=== PATIENT | female | born 1955 | race Hispanic/Latino ===

== ENCOUNTER 2017-12-01 12:16 | Emergency (ER) | payer SELFPAY ==
--- NOTE | 2017-12-01 15:09 | ER ---
Nurse's Notes [facility] Name: Anni West Age: 62 yrs Sex: Female : 1955 Arrival Date: 12/01/2017 Time: 12:17 Bed 10 Private MD: Diagnosis: Fall on same level from slipping, tripping and stumbling;Pain in right shoulder;Pain in right knee Presentation: 12/01 13:36 Presenting complaint: Patient states: Patient reports she fell from a standing position ss yesterday at [facility]. C/o R arm pain, shoulder, R knee and back pain. Transition of care: patient was not received from another setting of care. Onset of symptoms was November 30, 2017. Risk Assessment: Do you want to hurt yourself or someone else? Patient reports no desire to harm self or others. Initial Sepsis Screen: Does the patient meet any 2 criteria? No. Patient's initial sepsis screen is negative. Does the patient have a suspected source of infection? No. Patient's initial sepsis screen is negative. Care prior to arrival: None. 13:36 Method Of Arrival: Ambulatory ss 13:36 Acuity: ARAM 4 ss Historical: - Allergies: 13:39 No Known Allergies; ss - Home Meds: 13:39 None [Active]; ss - PMHx: 13:39 None; ss - PSHx: 13:39 Hysterectomy; Tonsillectomy; ss - Immunization history:: Adult Immunizations unknown. - Social history:: Smoking status: Patient/guardian denies using tobacco. - Ebola Screening: : Patient denies exposure to infectious person Patient denies travel to an Ebola-affected area in the 21 days before illness onset. Screenin:36 Abuse screen: Denies threats or abuse. Denies injuries from another. Nutritional ss screening: No deficits noted. Tuberculosis screening: Never had TB. Fall Risk None identified. Assessment: 13:36 General: Appears in no apparent distress. comfortable, Behavior is calm, cooperative. ss Pain: Complains of pain in R shoulder, R knee and R side of back Pain currently is 9 out of 10 on a pain scale. Pain began yesterday after falling from a standing position Is continuous, Aggravated by increased activity, repositioning. Neuro: Level of Consciousness is awake, alert, obeys commands, Oriented to person, place, time, situation. Cardiovascular: Capillary refill < 3 seconds is brisk in bilateral fingers. Respiratory: Airway is patent Trachea midline Respiratory effort is even, unlabored, Respiratory pattern is regular, symmetrical, Denies cough, pain with respiration, pain with cough, pain with movement. GI: Abdomen is flat, non-distended, Patient currently denies diarrhea, nausea, vomiting. Derm: Skin is intact, is healthy with good turgor, Skin is dry, Skin is pink, warm \T\ dry. normal. Musculoskeletal: Circulation, motion, and sensation intact. Range of motion: limited in right shoulder, limited by pain Swelling absent. 15:41 Reassessment: discharge instruction given with the aide of language line. Awaiting shot ss time. Patient is content with care received. Vital Signs: 13:39 BP 130 / 72; Pulse 62; Resp 16; Temp 97.9(O); Pulse Ox 100% on R/A; Weight 66.22 kg; ss Height 5 ft. 2 in. (157.48 cm); Pain 9/10; 13:39 Body Mass Index 26.70 (66.22 kg, 157.48 cm) ss ED Course: 12:17 Patient arrived in ED. mr 13:35 Jeanine Tse, RN is Primary Nurse. ss 13:36 Patient has correct armband on for positive identification. Bed in low position. Call ss light in reach. 13:39 Triage completed. ss 13:39 Arm band placed on right wrist. ss 14:10 Marlene Gifford FNP-C is PHCP. snw 14:10 Ian Alvarez MD is Attending Physician. snw 14:43 Knee Right 3 View XRAY In Process Unspecified. EDMS 14:44 X-ray completed. Portable x-ray completed in exam room. Patient tolerated procedure jb2 well. 15:40 No provider procedures requiring assistance completed. Patient did not have IV access ss during this emergency room visit. Sling applied to right arm. Administered Medications: 15:40 Drug: TORadol 60 mg Route: IM; Site: right gluteus; ss 15:40 Not Given (patient is driving herself): UltRAM 50 mg PO once ss Outcome: 15:08 Discharge ordered by . snw 16:00 Discharged to home ambulatory. ss 16:00 Condition: good 16:00 Discharge instructions given to patient, Instructed on discharge instructions, follow up and referral plans. medication usage, Demonstrated understanding of instructions, follow-up care, medications, Prescriptions given X 2. 16:02 Patient left the ED. ss Signatures: Dispatcher [employer] EDMS Marlene Gifford, KELLY-C INTENSIVE CARE MEDICINE SPECIALIST-Mattie Garcia mr Rodriguez, Omar jb2 Jeanine Tse, RN RN ss
--- NOTE | 2017-12-01 15:09 | EDPHYS ---
Physician Documentation [facility] Name: Anni West Age: 62 yrs Sex: Female : 1955 Arrival Date: 12/01/2017 Time: 12:17 Bed 10 Private MD: ED Physician Ian Alvarez HPI: 12/01 15:36 This 62 yrs old Female presents to ER via Ambulatory with complaints of Back snw Pain, Arm Pain. 15:36 This 62 yrs old Female presents to ER via Ambulatory with complaints of Back snw Pain, Arm Pain. 15:36 Details of fall: The patient fell from an upright position, while standing. Onset: The snw symptoms/episode began/occurred suddenly, yesterday. Associated injuries: The patient sustained injury to the low back, pain with movement, right shoulder and right knee, contusion, painful injury. Severity of symptoms: At their worst the symptoms were moderate. The patient has not experienced similar symptoms in the past. The patient has not recently seen a physician. Historical: - Allergies: 13:39 No Known Allergies; ss - Home Meds: 13:39 None [Active]; ss - PMHx: 13:39 None; ss - PSHx: 13:39 Hysterectomy; Tonsillectomy; ss - Immunization history:: Adult Immunizations unknown. - Social history:: Smoking status: Patient/guardian denies using tobacco. - Ebola Screening: : Patient denies exposure to infectious person Patient denies travel to an Ebola-affected area in the 21 days before illness onset. ROS: 15:35 Constitutional: Negative for fever, chills, and weight loss, Eyes: Negative for injury, snw pain, redness, and discharge, ENT: Negative for injury, pain, and discharge, Neck: Negative for injury, pain, and swelling, Cardiovascular: Negative for chest pain, palpitations, and edema, Respiratory: Negative for shortness of breath, cough, wheezing, and pleuritic chest pain, Abdomen/GI: Negative for abdominal pain, nausea, vomiting, diarrhea, and constipation, Back: Positive for injury and pain to low back : Negative for injury, bleeding, discharge, and swelling, Skin: Negative for injury, rash, and discoloration, Neuro: Negative for headache, weakness, numbness, tingling, and seizure. 15:35 MS/extremity: Positive for injury or acute deformity, decreased range of motion, tenderness, of the right shoulder, right knee. Exam: 15:33 Constitutional: This is a well developed, well nourished patient who is awake, alert, snw and in no acute distress. Head/Face: Normocephalic, atraumatic. Eyes: Pupils equal round and reactive to light, extra-ocular motions intact. Lids and lashes normal. Conjunctiva and sclera are non-icteric and not injected. Cornea within normal limits. Periorbital areas with no swelling, redness, or edema. ENT: Nares patent. No nasal discharge, no septal abnormalities noted. Tympanic membranes are normal and external auditory canals are clear. Oropharynx with no redness, swelling, or masses, exudates, or evidence of obstruction, uvula midline. Mucous membranes moist. Neck: Trachea midline, no thyromegaly or masses palpated, and no cervical lymphadenopathy. Supple, full range of motion without nuchal rigidity, or vertebral point tenderness. No Meningismus. Chest/axilla: Normal chest wall appearance and motion. Nontender with no deformity. No lesions are appreciated. Cardiovascular: Regular rate and rhythm with a normal S1 and S2. No gallops, murmurs, or rubs. Normal PMI, no JVD. No pulse deficits. Respiratory: Lungs have equal breath sounds bilaterally, clear to auscultation and percussion. No rales, rhonchi or wheezes noted. No increased work of breathing, no retractions or nasal flaring. Abdomen/GI: Soft, non-tender, with normal bowel sounds. No distension or tympany. No guarding or rebound. No evidence of tenderness throughout. Back: No spinal tenderness. No costovertebral tenderness. Full range of motion. Skin: Warm, dry with normal turgor. Normal color with no rashes, no lesions, and no evidence of cellulitis. Neuro: Awake and alert, GCS 15, oriented to person, place, time, and situation. Cranial nerves II-XII grossly intact. Motor strength 5/5 in all extremities. Sensory grossly intact. Cerebellar exam normal. Normal gait. Psych: Awake, alert, with orientation to person, place and time. Behavior, mood, and affect are within normal limits. 15:33 Back: No spinal tenderness. No costovertebral tenderness. Full range of motion. 15:33 Musculoskeletal/extremity: Extremities: grossly normal except: noted in the right shoulder (painful arc), right knee: decreased ROM, tenderness, ROM: limited active range of motion due to pain, Circulation is intact in all extremities. Sensation intact. 15:33 Neuro: Exam negative for acute changes. Vital Signs: 13:39 BP 130 / 72; Pulse 62; Resp 16; Temp 97.9(O); Pulse Ox 100% on R/A; Weight 66.22 kg; ss Height 5 ft. 2 in. (157.48 cm); Pain 9/10; 13:39 Body Mass Index 26.70 (66.22 kg, 157.48 cm) ss MDM: 14:10 Patient medically screened. snw 15:35 Data reviewed: vital signs, nurses notes. Data interpreted: Pulse oximetry: on room air snw is 100 %. Interpretation: normal. Counseling: I had a detailed discussion with the patient and/or guardian regarding: the historical points, exam findings, and any diagnostic results supporting the discharge/admit diagnosis, radiology results, the need for outpatient follow up, to return to the emergency department if symptoms worsen or persist or if there are any questions or concerns that arise at home. Special discussion: Based on the history and exam findings, there is no indication for further emergent testing or inpatient evaluation. I discussed with the patient/guardian the need to see the orthopedic surgeon for further evaluation of the symptoms. I discussed with the patient/guardian the need to see the primary care provider for further evaluation of the symptoms. 12/01 14:34 Order name: Knee Right 3 View XRAY; Complete Time: 15:33 snw 12/01 14:34 Order name: Sling; Complete Time: 15:16 snw Administered Medications: 15:40 Drug: TORadol 60 mg Route: IM; Site: right gluteus; ss 15:40 Not Given (patient is driving herself): UltRAM 50 mg PO once ss Disposition: 18:33 Co-signature as Attending Physician, Ian Alvarez MD I agree with the assessment and kdr plan of care. Disposition: 12/01/17 15:08 Discharged to Home. Impression: Fall on same level from slipping, tripping and stumbling, Pain in right shoulder, Pain in right knee. - Condition is Stable. - Discharge Instructions: Joint Pain, Fall Prevention in the Home, Shoulder Pain, Knee Pain, Shoulder Range of Motion Exercises, Cryotherapy, Heat Therapy, [id number]. - Prescriptions for Diclofenac Sodium 75 mg Oral Tablet Sustained Release - take 1 tablet by ORAL route 2 times per day; 30 tablet. orphenadrine citrate 100 mg Oral Tablet Sustained Release - take 1 tablet by ORAL route 2 times per day As needed; 20 tablet. - Medication Reconciliation Form, Thank You Letter, Antibiotic Education, Prescription Opioid Use form. - Follow up: Private Physician; When: 2 - 3 days; Reason: Recheck today's complaints, Continuance of care, Re-evaluation by your physician. Follow up: Emergency Department; When: As needed; Reason: Worsening of condition. Signatures: Dispatcher [employer] EDMS Ian Alvarez MD MD [facility] Marlene Gifford, PRINTING ASSISTANT-C PRINTING ASSISTANT-Haleyw Jeanine Tse RN RN ss Corrections: (The following items were deleted from the chart) 16:02 15:08 12/01/2017 15:08 Discharged to Home. Impression: Fall on same level from ss slipping, tripping and stumbling; Pain in right shoulder; Pain in right knee. Condition is Stable. Forms are Medication Reconciliation Form, Thank You Letter, Antibiotic Education, Prescription Opioid Use. Follow up: Private Physician; When: 2 - 3 days; Reason: Recheck today's complaints, Continuance of care, Re-evaluation by your physician. Follow up: Emergency Department; When: As needed; Reason: Worsening of condition. snw
[2017-12-01] MEDS ORDERED: TRAMADOL HCL 50 MG TAB ONE (15:23)
[2017-12-01] MEDS ORDERED: KETOROLAC 30 MG/ML INJ ONE (15:24)
--- NOTE | 2017-12-01 15:25 | RAD REPORT ---
EXAM DESCRIPTION: RAD - Knee Right 3 View - 12/01/2017 2:43 pm CLINICAL HISTORY: Right knee pain status post fall FINDINGS: No fracture or dislocation is seen. If the patient continues have symptoms to suggest an occult fracture, ligamentous or meniscal injury then an MRI would be recommended.
== END 2017-12-01 16:02 | disposition home or self-care (01) ==
LOC: ER 12:16
DX: M25.561 Pain in right knee (principal); W01.0XXA Fall on same level from slipping, tripping and stumbling without subsequent striking against object, initial encounter; Y93.89 Activity, other specified; Y92.9 Unspecified place or not applicable
CPT/HCPCS: 96372; 99284